=== PATIENT | female | born 1995 | race Caucasian/White ===

== ENCOUNTER 2024-08-11 07:58 | Emergency (ER) | payer SELFPAY ==
--- NOTE | 2024-08-11 08:03 | ED.GENADULT ---
HPI - General Adult General Chief complaint: Overdose Stated complaint: OVERDOSE Time Seen by Provider: 08/11/24 08:03 Source: patient and EMS Mode of arrival: EMS Limitations: no limitations History of Present Illness ED Provider: Emilie Cameron PA-C HPI narrative: Patient is a 29 year old assigned female at with a history of opiate use / abuse presenting to the emergency department today after an overdose. Patient states that she uses opiates intermittently and today she decided to use. Patient states that she was conscious through the entire interactions with EMS and PD. EMS states that the patient was found unconscious and given 4mg of Narcan by PD. Patient denies any dizziness, lightheadedness, abdominal pain, nausea, vomiting, fever, chills, blurry vision, double vision, loss of vision, chest pain, difficulty breathing, shortness of breath, back pain, night sweats, pain with urination, increased urinary frequency, increased urinary urgency, blood in her urine or stool, recent trauma or falls, bowel incontinence, bladder incontinence, or any other complaints at this time. Relieving factors: none Exacerbating factors: none Associated symptoms: denies other symptoms Treatments prior to arrival: other (4mg Narcan by PD) Related Data Allergies Allergy/AdvReac Type Severity Reaction Status Date / Time No Known Allergies Allergy Verified 08/11/24 08:14 Review of Systems Constitutional: Constitutional: Reports no additional constitutional complaints, Denies chills, Denies fever(s) and Denies night sweats Eyes: Eyes: Reports no additional eye complaints, Denies blurry vision, Denies change in vision, Denies diplopia, Denies eye discharge, Denies loss of vision and Denies eye pain ENT: Denies dizziness Cardiovascular: Cardiovascular: Reports no additional cardiovascular complaints, Denies chest pain, Denies lightheadedness, Denies Loss of Consciousness and Denies dyspnea Respiratory: Respiratory: Reports no additional respiratory complaints and Denies dyspnea Gastrointestinal: Gastrointestinal: Reports no additional gastrointestinal complaints, Denies abdominal pain, Denies melena, Denies hematochezia, Denies change in bowel habits and Denies change in stool character Genitourinary: Genitourinary: Denies hematuria, Denies urinary frequency, Denies dysuria, Denies urinary incontinence, Denies urinary hesitancy and Denies urinary urgency Musculoskeletal: Musculoskeletal: Reports no additional musculoskeletal complaints, Denies numbness and Denies tingling Neurologic: Denies dizziness, Denies loss of vision, Denies numbness and Denies tingling Psychiatric: Psychiatric: Reports no additional psychiatric complaints Endocrine: Endocrine: Reports no additional endocrine complaints Hematologic/Lymphatic: Hematologic/Lymphatic: Reports no additional hematologic/lymphatic complaints Allergic/Immunologic: Allergic/Immunologic: Reports no additional allergic/immunologic complaints PMFSH Past Medical History Attestation statement: The following information was validated with the patient. Source: old records reviewed and nursing notes reviewed Social History Social History Advance Directives: No Advance Directives Information Provided: Yes Physical Exam ED Vital Signs: Vital Signs - 24 hr 08/11/24 08:21 08/11/24 08:27 Temperature 98.5 F 98.5 F Pulse Rate 105 H 105 H Respiratory Rate 20 20 Blood Pressure 137/95 H 137/95 H Pulse Oximetry 97 97 Oxygen Delivery Method Room Air Room Air BMI result Body Mass Index 22.7 Const General: cooperative, no acute distress, alert and awake Nutritional Appearance: well nourished Orientation/consciousness: patient oriented x3 Limitations: no limitations HENMT Head: Yes normal to inspection and Yes atraumatic Ears: hearing grossly normal bilaterally and external ears normal General nose exam: Normal external nose present, no nasal discharge noted and no epistaxis Face and sinus: Yes normal facial exam, No abrasion and No laceration Mouth: Normal oral and palatal mucosa present, no drooling and no muffled voice Eyes General: appearance normal, both eyes and all related structures Periorbital: periorbital findings normal Eyelids: Yes eyelids normal Conjunctivae: conjunctivae normal Pupils: Equal, round and reactive pupils present EOM: EOMs intact bilaterally Neck Neck: Yes normal visual inspection, Yes full ROM and Yes no lymphadenopathy Chest Chest palpation & inspection: normal inspection of the chest Resp Effort & Inspection: normal respiratory effort and able to speak in complete sentences GI Inspection: Yes normal to inspection Neuro General: patient oriented x3 and moves all extremities Cranial nerves: Yes Equal, round and reactive pupils present Cognition (Neuro): normal cognition Extrem General: Yes normal to inspection, Yes full ROM and Yes capillary refill normal Psych Appearance: grossly normal Mental Status: mental status grossly normal Affect: normal affect Attitude: cooperative Thought process: Normal thought process present Thought content: Normal thought content present Insight: Good insight present (Psych) Medications Administered Discontinued Medications Generic Name Dose Route Start Last Admin Trade Name Dylon PRN Reason Stop Dose Admin Acetaminophen 650 mg 08/11/24 08:12 08/11/24 08:22 Acetaminophen 325 Mg Tablet PO 08/11/24 08:13 650 mg ONCE ONE Administration Naloxone HCl 8 mg 08/11/24 08:14 08/11/24 08:23 Naloxone Hcl Nasal Take Home 4 Mg [place] NOSTRILALT 08/11/24 08:15 Not Given ONCE ONE Medical Decision Making Medical Decision Making MDM Narrative: Patient is a 29 year old assigned female at with a history of opiate use / abuse presenting to the emergency department today after an overdose. Patient's physical exam was unremarkable. Patient refused any testing such as labs or EKG. Patient stated that she wanted to be discharged. Patient was of sound mind and decision making capability. Patient declined any addiction services at this time. Patient agreed to take Narcan and resources home with her. I explained my physical exam findings to the patient. I answered all questions asked by the patient. I stressed the importance of the patient taking her medication as directed (either prescribed or as the over the counter packaging recommends). I stressed the importance of the patient following up with her primary care provider. I stressed the importance of the patient returning to the emergency department immediately if she were to develop any dizziness, shortness of breath, difficulty breathing, chest pain, blurry vision, loss of vision, nausea, vomiting, abdominal pain, fever, chills, back pain, or any other complaints. Patient verbalized agreement and understanding with this treatment plan and discharge. Differential Diagnosis Differential Diagnoses: The differential diagnosis associated with the presentation includes Opiate overdose Opiate abuse Opiate use Admission/Observation Consideration of admission/observation: Escalation of care including admission/observation considered Patient would have been admitted to the hospital had her clinical presentation warranted hospital admission and had she consented to a full work up that showed evidence warranting admission. Independent Historian Clinical information obtained from an independent historian. History obtained from or confirmed by: EMS (EMS provided additional history and confirmed the history provided by the patient.) Tests considered The following testing was considered but not selected: I considered obtaining a CBC, CMP, Magnesium level, and EKG however - the patient refused. Discharge Plan Discharge Clinical Impression: Opioid use disorder Patient Disposition: Home, Self-Care Instructions: Opioid Use Disorder (ED) Additional Instructions: Please do not use illicit drugs. If you continue to use illicit drugs - please do not use alone. If you decide you'd like to get on suboxone and/or want help with your opioid use disorder, please follow up with the [facility]. Follow up with your primary care provider. Return to the emergency department immediately if your symptoms worsen or if you develop any dizziness, shortness of breath, difficulty breathing, chest pain, blurry vision, loss of vision, nausea, vomiting, abdominal pain, fever, chills, back pain, or any other complaints. Referrals: [facility] [Provider Group] (If you decide you'd like to get on suboxone and/or want help with your opioid use disorder, please call to establish and follow up with the [facility]. ) [facility] [place] [facility] [Provider Group] (Call to establish and follow up with a primary care provider. If you already have a primary care provider, please follow up with them.) [facility] [place] Primary [facility], [facility] [Provider Group] (Call to establish and follow up with a primary care provider. If you already have a primary care provider, please follow up with them.) [facility] [place] Primary Care,[facility] [Provider Group] (Call to establish and follow up with a primary care provider. If you already have a primary care provider, please follow up with them.) Interventions: ED Discharge Assessment Last Done: 08/11/24 08:27 Discharge Date/Time: 08/11/24 08:31 Print Language: Korean
[2024-08-11 08:10] VITALS: BP 118/72; PULSE 116; O2SAT 98
[2024-08-11 08:12] VITALS: BMI 22.7
--- NOTE | 2024-08-11 08:12 | MHC.EDTECH ---
pt refused EKG and vitals. PA aware
--- NOTE | 2024-08-11 08:15 | PC.NURSE ---
patient refused all care. patient did not want vitals taken, or EKG and denied any pain other than a headache. MD elizabeth
[2024-08-11 08:21] VITALS: BP 137/95; PULSE 105; RESP 20; TEMP 36.9; O2SAT 97
[2024-08-11] MEDS: Acetaminophen 325 MG TABLET 650 MG PO (08:22)
[2024-08-11 08:27] VITALS: BP 137/95; PULSE 105; RESP 20; TEMP 36.9; O2SAT 97
== END 2024-08-11 08:31 | disposition home or self-care (01) ==
LOC: HO.ED 08:27
PROVIDERS: Emergency Provider Emergency Medicine Emergency Medical Services
DX: T40.601A Poisoning by unspecified narcotics, accidental (unintentional), initial encounter (principal); R40.4 Transient alteration of awareness; F11.10 Opioid abuse, uncomplicated; Z71.51 Drug abuse counseling and surveillance of drug abuser
CPT/HCPCS: 99283